=== PATIENT | male | born 1955 | race Caucasian/White ===

== ENCOUNTER 2016-03-13 02:38 | Emergency (ER) | payer SELFPAY ==
[~2016-03-13] VITALS: Ht 177.8 cm; Wt 86.4 kg
[2016-03-13 02:45] VITALS: BP 132/72; PULSE 62; RESP 18; O2SAT 98
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
== END 2016-03-13 03:24 | disposition left against medical advice (07) ==
LOC: EDBD 02:38 → SED 02:38
DX: F43.0 Acute stress reaction (principal); M79.671 Pain in right foot; M79.672 Pain in left foot; Z59.0 Homelessness; Z86.59 Personal history of other mental and behavioral disorders